=== PATIENT | male | born 1995 | race Caucasian/White ===

== ENCOUNTER 2018-04-08 12:49 | Emergency (ER) | payer OTHER ==
[2018-04-08 13:28] LABS: BILIRUBIN,URINE NEGATIVE (NEGATIVE); GLUCOSE, URINE (UA) NEGATIVE (NEGATIVE); KETONES,URINE (UA) NEGATIVE (NEGATIVE); LEUKOCYTE ESTERASE, URINE NEGATIVE (NEGATIVE); NITRITE,URINE NEGATIVE (NEGATIVE); OCCULT BLOOD,URINE NEGATIVE (NEGATIVE); PH,URINE 7.5 PH (5.0-7.5); PROTEIN,URINE NEGATIVE (NEGATIVE); UROBILINOGEN,URINE 0.2 (NORMAL) E.U./dL (NORMAL)
[2018-04-08 13:29] LABS: CLARITY,URINE CLEAR (CLEAR)
[2018-04-08] MEDS ORDERED: AZITHROMYCIN 250 MG TABLET PO STA (13:56)
[2018-04-08] MEDS ORDERED: LIDOCAINE 1% 2 ML VIAL SUBQ ONE (13:56)
[2018-04-08] MEDS ORDERED: cefTRIAXone 250 MG VIAL IM STA (13:56)
--- NOTE | 2018-04-08 13:59 | ED Physician Documentation ---
History of Present Illness - Stated complaint Stated Complaint: MALE - Chief complaint Chief Complaint: General - History obtained from History obtained from: Patient - History of Present Illness Timing: Today (He has urinary burning and discharge today. He is in a monogamous relationship for only a month or so. No history of STDs, rash, or masses.) Review of Systems Constitutional: reports: Reviewed and negative Cardiac: reports: Reviewed and negative Respiratory: reports: Reviewed and negative PD PAST MEDICAL HISTORY - Past Medical History Past Medical History: No - Present Medications Home Medications: Ambulatory Orders Medication Instructions Recorded Confirmed No Known Home Medications 04/08/18 04/08/18 - Allergies Allergies/Adverse Reactions: Allergies Allergy/AdvReac Type Severity Reaction Status Date / Time No Known Drug Allergies Allergy Verified 04/08/18 13:00 - Social History Does the pt smoke?: Yes Smoking Status: Current every day smoker PD ED PE NORMAL - Vitals Vital signs reviewed: Yes - General General: Alert and oriented X 3, No acute distress - Male Male : Other (Normal male genitalia without obvious urethritis or rashes or inguinal adenopathy) - Neuro Neuro: Alert and oriented X 3, Normal speech Results - Vitals Vitals: Vital Signs - 24 hr 04/08/18 12:58 Temperature 36.1 C L Heart Rate 100 Respiratory 16 Rate Blood Pressure 133/79 H O2 Saturation 100 Oxygen O2 Source Room air - Labs Labs: Laboratory Tests 04/08/18 13:14 Urine Color YELLOW Urine Clarity CLEAR Urine pH 7.5 Ur Specific [place] 1.015 Urine Protein NEGATIVE Urine Glucose (UA) NEGATIVE Urine Ketones NEGATIVE Urine Occult Blood NEGATIVE Urine Nitrite NEGATIVE Urine Bilirubin NEGATIVE Urine Urobilinogen 0.2 (NORMAL) Ur Leukocyte Esterase NEGATIVE Ur Microscopic Review NOT INDICATED Urine Culture Comments NOT INDICATED Departure - Departure Disposition: Home, Self Care Clinical Impression: Urethritis Condition: Good Record reviewed to determine appropriate education?: Yes Instructions: ED STD Male Treated Comments: We will call in approximately 3 days if any of the STD tests are positive, you have been treated here for gonorrhea and chlamydia which are the likely culprits of your symptoms. Your blood pressure was elevated today on check into the emergency department. This does not mean that you have hypertension, it is a common phenomenon to come to the emergency department and have elevated blood pressure. I recommend that you see your primary care physician within the week to have it rechecked when you are feeling better.
[2018-04-08 14:23] VITALS: BP 98/61
== END 2018-04-08 14:19 | disposition home or self-care (01) ==
LOC: ED 12:49
DX: N34.2 Other urethritis (principal); R03.0 Elevated blood-pressure reading, without diagnosis of hypertension; F17.200 Nicotine dependence, unspecified, uncomplicated
CPT/HCPCS: 81003; 87491; 87591; 96372; 99283; A9270; 81001; 87086

== ENCOUNTER 2018-11-09 17:36 | Emergency (ER) | payer OTHER ==
[2018-11-09 17:41] VITALS: BP 142/74
--- NOTE | 2018-11-09 18:03 | ED Physician Documentation ---
History of Present Illness - Stated complaint Stated Complaint: RASH ON FEET/HANDS/MALE - Chief complaint Chief Complaint: General - History obtained from History obtained from: Patient - History of Present Illness Timing: Other (23-year-old gentleman with about a week of itchy rash in the groin and nonpainful non-itchy rash on the concern for STDs. No genital lesions.) Review of Systems Constitutional: reports: Reviewed and negative Cardiac: reports: Reviewed and negative Respiratory: reports: Reviewed and negative PD PAST MEDICAL HISTORY - Present Medications Home Medications: Ambulatory Orders Medication Instructions Recorded Confirmed Fluconazole 150 mg PO ONCE #4 tablet 11/09/18 - Allergies Allergies/Adverse Reactions: Allergies Allergy/AdvReac Type Severity Reaction Status Date / Time No Known Drug Allergies Allergy Verified 11/09/18 17:41 - Social History Does the pt smoke?: Yes Smoking Status: Current every day smoker PD ED PE NORMAL - Vitals Vital signs reviewed: Yes - General General: Alert and oriented X 3, No acute distress - Derm Derm: Other (In the groin there is a scalloped rash in the intertriginous fold consistent with fungal/Tinial lesion. Large flat vesicular lesions on a red base on the hands and feet, only a few of them.) Results - Vitals Vitals: Vital Signs - 24 hr 11/09/18 17:38 Temperature 36.7 C Heart Rate 77 Respiratory 14 Rate Blood Pressure 142/74 H O2 Saturation 100 Oxygen O2 Source Room air PD MEDICAL DECISION MAKING - ED course ED course: This is concerning for syphilis but he does not seem to have any risk factors but blood tests are ordered. Departure - Departure Disposition: 01 Home, Self Care Clinical Impression: Rash and nonspecific skin eruption Condition: Good Record reviewed to determine appropriate education?: Yes Instructions: ED Candidiasis Cutaneous Prescriptions: Fluconazole 150 mg PO ONCE #4 tablet Comments: Call your doctor to arrange a follow-up appointment, make the next available appointment. In the interim, return anytime if worse or if new symptoms develop. Your blood pressure was elevated today on check into the emergency department. This does not mean that you have hypertension, it is a common phenomenon to come to the emergency department and have elevated blood pressure. I recommend that you see your primary care physician within the week to have it rechecked when you are feeling better.
== END 2018-11-09 18:10 | disposition home or self-care (01) ==
LOC: ED 17:36
DX: R21 Rash and other nonspecific skin eruption (principal); R03.0 Elevated blood-pressure reading, without diagnosis of hypertension; F17.200 Nicotine dependence, unspecified, uncomplicated
CPT/HCPCS: 36415; 81599; 86780; 99283

== ENCOUNTER 2019-02-20 17:00 | Emergency (ER) | payer OTHER ==
[2019-02-20 17:07] VITALS: BP 120/58
--- NOTE | 2019-02-20 17:13 | ED Physician Documentation ---
History of Present Illness - Stated complaint Stated Complaint: LT SIDE PX/INJ - Chief complaint Chief Complaint: Resp - Additonal information Additional information: This is a 23-year-old male who denies past medical history who presents with left-sided rib pain. Patient was playing sports yesterday and after catching a ball another player's foot impacted the left side of his ribs. He had soreness in the region immediately, which has not improved over the last day. He states that when he takes a deep breath he has increased pain over the region. The pain is moderate in severity at rest, and severe with pressure. No hemoptysis. He denies any abdominal pain, or head trauma. Review of Systems Cardiac: reports: Chest pain / pressure Respiratory: denies: Hemoptysis GI: denies: Abdominal Pain, Vomiting Skin: denies: Lesions Musculoskeletal: denies: Extremity pain PD PAST MEDICAL HISTORY - Past Medical History Past Medical History: No - Present Medications Home Medications: Ambulatory Orders Medication Instructions Recorded Confirmed Fluconazole 150 mg PO ONCE #4 tablet 11/09/18 Acetaminophen 650 mg PO Q6HR #30 tablet 02/20/19 Ibuprofen 600 mg PO Q6H PRN #30 tablet 02/20/19 Methocarbamol 500 mg PO TID PRN #15 tablet 02/20/19 - Allergies Allergies/Adverse Reactions: Allergies Allergy/AdvReac Type Severity Reaction Status Date / Time No Known Drug Allergies Allergy Verified 02/20/19 17:07 - Living Situation Living Situation: reports: With family - Social History Does the pt smoke?: Yes Smoking Status: Current every day smoker PD ED PE NORMAL - Vitals Vital signs reviewed: Yes - General General: Alert and oriented X 3, No acute distress - HEENT HEENT: Atraumatic - Neck Neck: Supple, no meningeal sign - Cardiac Cardiac: RRR, No murmur - Respiratory Respiratory: No respiratory distress, Clear bilaterally, Other (No ecchymosis or erythema over the chest wall. Over the left lateral lower ribs there is tenderness to palpation. No crepitus palpated.) - Abdomen Abdomen: Soft, Non tender, Non distended - Derm Derm: Warm and dry - Extremities Extremities: No deformity - Neuro Neuro: Alert and oriented X 3 - Psych Psych: Normal mood, Normal affect Results - Vitals Vitals: Vital Signs - 24 hr 02/20/19 17:04 Temperature 36.6 C Heart Rate 69 Respiratory 14 Rate Blood Pressure 120/58 L O2 Saturation 99 Oxygen O2 Source Room air PD MEDICAL DECISION MAKING - ED course Complexity details: considered differential (Fracture, contusion, pulmonary contusion, hemothorax, pneumothorax) ED course: On exam patient is well-appearing, he has point tenderness over his left lower ribs, but no crepitus. His lungs are clear to auscultation. X-rays of his ribs were obtained and showed no obvious acute fracture. I discussed with him that he likely has a contusion of his ribs, or nondisplaced fracture that is not visible on his x-ray. I discussed supportive care including rest, ice, Tylenol, ibuprofen, and methocarbamol if needed for breakthrough pain. I recommend he follow-up with his primary care provider and that he return to the emergency room if he develops new or worsening symptoms such as difficulty breathing. Patient agrees with this plan and was discharged home in care of his family. Departure - Departure Clinical Impression: Contusion of rib on left side Condition: Good Instructions: ED Contusion Rib Follow-Up: Your,PCP [Other] - As Needed Prescriptions: Acetaminophen 650 mg PO Q6HR #30 tablet Ibuprofen 600 mg PO Q6H PRN #30 tablet PRN Reason: Pain Methocarbamol 500 mg PO TID PRN #15 tablet PRN Reason: Pain Comments: You were seen today for rib pain,you appear to have a contusion or bruising of your left ribs. Please apply ice to the region, rest, and avoid reinjuring the area. You may take Tylenol/ibuprofen for pain, and methocarbamol if needed if the Tylenol ibuprofen is not sufficient. If you develop worsening shortness of breath or chest pain please return to the emergency department, otherwise follow-up with your primary care provider.
[2019-02-20] MEDS ORDERED: ACETAMINOPHEN 325 MG TABLET PO STA (17:14)
[2019-02-20] MEDS ORDERED: IBUPROFEN 600 MG TABLET PO STA (17:14)
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
== END 2019-02-20 18:38 | disposition home or self-care (01) ==
LOC: ED 17:00
DX: S20.212A Contusion of left front wall of thorax, initial encounter (principal); W50.0XXA Accidental hit or strike by another person, initial encounter; Y93.61 Activity, american tackle football; Y92.321 Football field as the place of occurrence of the external cause; F17.200 Nicotine dependence, unspecified, uncomplicated
CPT/HCPCS: 71046; 71100; 99283; 99284; A9270

== ENCOUNTER 2019-02-28 21:36 | Emergency (ER) | payer OTHER ==
[2019-02-28 21:44] VITALS: BP 117/72
[2019-02-28] MEDS ORDERED: cefTRIAXone 250 MG VIAL IM STA (21:49)
[2019-02-28] MEDS ORDERED: AZITHROMYCIN 250 MG TABLET PO STA (21:49)
[2019-02-28] MEDS ORDERED: LIDOCAINE 1% 2 ML VIAL MC ONE (21:49)
[2019-02-28 21:51] LABS: BILIRUBIN,URINE NEGATIVE (NEGATIVE); GLUCOSE, URINE (UA) NEGATIVE (NEGATIVE); KETONES,URINE (UA) NEGATIVE (NEGATIVE); LEUKOCYTE ESTERASE, URINE TRACE (NEGATIVE); NITRITE,URINE NEGATIVE (NEGATIVE); OCCULT BLOOD,URINE NEGATIVE (NEGATIVE); PH,URINE 6.5 PH (5.0-7.5); PROTEIN,URINE NEGATIVE (NEGATIVE); UROBILINOGEN,URINE 1 (NORMAL) E.U./dL (NORMAL)
--- NOTE | 2019-02-28 21:52 | ED Physician Documentation ---
History of Present Illness - Stated complaint Stated Complaint: MALE - Chief complaint Chief Complaint: General - History obtained from History obtained from: Patient - History of Present Illness Timing: Other (23-year-old gentleman with history of chlamydia presents with whitish urethral discharge which is mildly annoying for the last 2 days. He denies skin irritation or lesions. He is in a monogamous relationship, but note that he was in the same monogamous relationship when he got chlamydia previously.) Review of Systems Constitutional: reports: Reviewed and negative Nose: reports: Reviewed and negative Throat: reports: Reviewed and negative PD PAST MEDICAL HISTORY - Past Medical History Past Medical History: No Cardiovascular: None Respiratory: None Neuro: None Endocrine/Autoimmune: None GI: None : None HEENT: None Psych: None Musculoskeletal: None Derm: None - Past Surgical History Past Surgical History: Yes General: Other - Present Medications Home Medications: Ambulatory Orders Medication Instructions Recorded Confirmed Fluconazole 150 mg PO ONCE #4 tablet 11/09/18 Acetaminophen 650 mg PO Q6HR #30 tablet 02/20/19 Ibuprofen 600 mg PO Q6H PRN #30 tablet 02/20/19 Methocarbamol 500 mg PO TID PRN #15 tablet 02/20/19 - Allergies Allergies/Adverse Reactions: Allergies Allergy/AdvReac Type Severity Reaction Status Date / Time No Known Drug Allergies Allergy Verified 02/28/19 21:46 - Social History Does the pt smoke?: Yes Smoking Status: Current every day smoker Does the pt drink ETOH?: Yes Does the pt have substance abuse?: No - Immunizations Immunizations are current?: Yes - POLST Patient has POLST: No PD ED PE NORMAL - Vitals Vital signs reviewed: Yes - General General: Alert and oriented X 3, No acute distress - Abdomen Abdomen: Soft, Non tender - Male Male : Other (He does have obvious urethritis with some clear discharge from the tip. He is circumcised. No skin changes. No inguinal and. No testicular tenderness or hernia mass.) - Neuro Neuro: Alert and oriented X 3, Normal speech Results - Vitals Vitals: Vital Signs - 24 hr 02/28/19 21:43 Temperature 36.8 C Heart Rate 82 Respiratory 16 Rate Blood Pressure 117/72 O2 Saturation 100 Oxygen O2 Source Room air Departure - Departure Disposition: 01 Home, Self Care Clinical Impression: Urethritis Condition: Good Record reviewed to determine appropriate education?: Yes Instructions: ED Urethritis Infec Vs Inflam Male Comments: We will call you if gonorrhea or chlamydia tests are positive. [place]. You have received intramuscular ceftriaxone and oral azithromycin which should cover for any infection that would cause the symptoms.
[2019-02-28 22:14] LABS: CLARITY,URINE CLEAR (CLEAR)
[2019-02-28 22:15] LABS: BACTERIA,URINE None Seen /HPF (None Seen); RBC,URINE None Seen /HPF (0-5); SQUAMOUS EPITHELIAL CELL,UR NONE SEEN (<= Few)
[2019-03-01 00:32] LABS: TRICHOMONAS VAGINALIS DNA NEGATIVE (NEGATIVE)
== END 2019-02-28 22:36 | disposition home or self-care (01) ==
LOC: ED 21:36
DX: N34.2 Other urethritis (principal); F17.200 Nicotine dependence, unspecified, uncomplicated
CPT/HCPCS: 81001; 87086; 87491; 87591; 87661; 96372; 99282; 99283; A9270; 81003

== ENCOUNTER 2019-09-21 08:25 | Emergency (ER) | payer OTHER ==
[2019-09-21 08:42] VITALS: BP 142/72
[2019-09-21] MEDS ORDERED: BUFFERED LIDOCAINE 10 ML SYRINGE SUBQ STA (09:00)
--- NOTE | 2019-09-21 09:55 | ED Physician Documentation ---
PD HPI SKIN - Stated complaint Stated Complaint: LT HAND LAC - Chief complaint Chief Complaint: Laceration - Additional information Additional information: Patient comes emergency department complaining of lacerations to his left hand. He states he was working on his car and reached down into get something and accidentally struck his hand on a couple of sharp edges. He states he was not injured in any other way. No difficulty with movement of his left thumb or index finger. He states he has had some mild numbness in his thumb. States the injury just happened within the last couple of hours. Patient is up-to-date on tetanus. No other complaints at this time. Review of Systems Ten Systems: 10 systems reviewed and negative Constitutional: reports: Reviewed and negative Eyes: reports: Reviewed and negative Ears: reports: Reviewed and negative Nose: reports: Reviewed and negative Throat: reports: Reviewed and negative Cardiac: reports: Reviewed and negative Respiratory: reports: Reviewed and negative GI: reports: Reviewed and negative : reports: Reviewed and negative Skin: reports: Laceration (s) Musculoskeletal: reports: Reviewed and negative Neurologic: reports: Reviewed and negative Psychiatric: reports: Reviewed and negative Endocrine: reports: Reviewed and negative Immunocompromised: reports: Reviewed and negative PD PAST MEDICAL HISTORY - Past Medical History Cardiovascular: None Respiratory: None Neuro: None Endocrine/Autoimmune: None GI: None : None HEENT: None Psych: None Musculoskeletal: None Derm: None - Past Surgical History Past Surgical History: Yes General: Other - Present Medications Home Medications: Ambulatory Orders Medication Instructions Recorded Confirmed Naproxen 250 mg PO BID #10 tablet 09/21/19 - Allergies Allergies/Adverse Reactions: Allergies Allergy/AdvReac Type Severity Reaction Status Date / Time No Known Drug Allergies Allergy Verified 09/21/19 08:41 - Social History Does the pt smoke?: Yes Smoking Status: Current every day smoker Does the pt drink ETOH?: Yes Does the pt have substance abuse?: No - Immunizations Immunizations are current?: Yes - POLST Patient has POLST: No PD ED PE NORMAL - Vitals Vital signs reviewed: Yes - General General: Alert and oriented X 3, No acute distress, Well developed/nourished - HEENT HEENT: Atraumatic, PERRL, EOMI, Moist mucous membranes - Neck Neck: Supple, no meningeal sign - Cardiac Cardiac: Strong equal pulses - Respiratory Respiratory: No respiratory distress - Derm Derm: Normal color, Warm and dry, No rash, Other (Patient has 2 linear parallel lacerations over the first webspace dorsally of his left hand one laceration is approximately 3 cm in length; the other is 1.5 cm in length bodies. Bleeding is controlled. Lacerations are each approximately 3 mm in depth.) - Extremities Extremities: No deformity - Neuro Neuro: Alert and oriented X 3 - Psych Psych: Normal mood, Normal affect Results - Vitals Vitals: Vital Signs - 24 hr 09/21/19 08:39 Temperature 36.4 C L Heart Rate 96 Respiratory 16 Rate Blood Pressure 142/72 H O2 Saturation 98 Oxygen O2 Source Room air Procedures - Laceration (location) Left hand Wound type: Linear Neurovascular status: Sensory intact, Motor intact, Vascular intact Tendon involvement: No: Tendon Injury Anesthesia: Lidocaine 1% Wound Preparation: Hibiclens Skin layer closure: Nylon, Size #-0 - enter number (4), Sutures - enter # (10) Other: Patient tolerated well, No complications, Neurovascular intact, Dressing applied, Tetanus UTD Complexity: Intermediate PD MEDICAL DECISION MAKING - ED course Complexity details: re-evaluated patient, considered differential, d/w patient ED course: Patient's lacerations were repaired as above with a total of 10 sutures. Patient was advised regarding wound care, as well as the timeframe for suture removal, which should be 7 days. We have discussed the symptoms of wound infection which would be indications for the patient to have immediate reevaluation. Patient expresses understanding. We have discussed the usual indications for return. Departure - Departure Disposition: 01 Home, Self Care Clinical Impression: Laceration Condition: Good Instructions: ED Laceration Hand Prescriptions: Naproxen 250 mg PO BID #10 tablet Comments: Please keep your wounds clean and dry. You may let water and soap run over the wound, but do not rub, scrub, or immerse the wound while your sutures are in place. This is to prevent infection.Your stitches will need to be taken out in 7 days. You may see your primary care physician for this, or you may go to urgent care. If you cannot be seen in either these places, you may come here. If your wound develops redness spreading away from the wound, or if it splits open and drains pus, you need to be seen right away. Discharge Date/Time: 09/21/19 10:12
== END 2019-09-21 10:12 | disposition home or self-care (01) ==
LOC: ED 08:25
DX: S61.412A Laceration without foreign body of left hand, initial encounter (principal); W26.9XXA Contact with unspecified sharp object(s), initial encounter; Y93.89 Activity, other specified; F17.200 Nicotine dependence, unspecified, uncomplicated
CPT/HCPCS: 12042